=== PATIENT | male | born 1955 | race African-American/Black ===

== ENCOUNTER 2017-08-24 11:21 | Day surgery (SDC) | payer OTHER ==
[2017-08-24] MEDS ORDERED: Midazolam HCl 2 mg/2 ml Vial ONE ×2 (12:33→13:55)
[2017-08-24] MEDS ORDERED: Fentanyl 100 MCG/2 ML VIAL ONE (12:34)
--- NOTE | 2017-08-24 15:55 | MRI ---
MRI OF THE PELVIS WITHOUT AND WITH CONTRAST 08/24/17 HISTORY: Nodular prostate with lower urinary tract symptoms. Patient has had prior prostate biopsy on 10/25/16 that was negative. TECHNIQUE: Multiplanar and multisequence MRI images were obtained of the prostate without and with contrast. FINDINGS: No significant enlargement of the prostate is seen. There is a well circumscribed focus of low T2 sig nal in the left peripheral zone of the prostate near the apex. This measures 9 mm in greatest dimensi on. No restricted diffusion or abnormal signal on the ADC map is seen in this location. No pelvic adenopathy is seen. No marrow signal abnormality is present. IMPRESSION: PI-RADS category 2 - low likelihood that a clinical significant cancer is present. POS: ROSIE
--- NOTE | 2017-08-24 15:56 | MRI ---
MRI OF THE ABDOMEN WITH AND WITHOUT CONTRAST: History: Nodular prostate with lower urinary tract symptoms. Evaluate cyst on left kidney. Technique: Multiplanar, multisequence MR images were obtained of the abdomen without and with IV cont rast. FINDINGS: There are well circumscribed foci of high T2 signal in both kidneys, the largest is seen on the left in the anterior hilar lip measuring 3.9 cm in greatest dimension. These do not demonstrate enhancemen t and represent simple cysts. No suspicious renal lesions are identified. There is no evidence of hyd ronephrosis. The liver, gallbladder, adrenal glands, spleen, and pancreas are unremarkable. No abdominal adenopath y is seen. No marrow signal abnormality is present. IMPRESSION: Bilateral renal cysts. POS: ROSIE
== END 2017-08-24 15:15 | disposition home or self-care (01) ==
LOC: SDC/OP 11:21
PROVIDERS: ATTEND Urology
DX: N40.3 Nodular prostate with lower urinary tract symptoms (principal); N28.1 Cyst of kidney, acquired; I10 Essential (primary) hypertension; G47.33 Obstructive sleep apnea (adult) (pediatric); Z79.82 Long term (current) use of aspirin; Z79.899 Other long term (current) drug therapy; Z98.890 Other specified postprocedural states
CPT/HCPCS: 36415; 72197; 74183; 82565; 84520; J2250; J3010